=== PATIENT | female | born 1970 | race American Indian/Alaskan Native ===

== ENCOUNTER 2017-10-19 13:18 | Outpatient (CLI) | payer BC ==
--- NOTE | 2017-10-25 17:20 | Vascular Lab Report ---
LEFT UPPER EXTREMITY VENOUS DUPLEX: REASON FOR EXAM: Pain and swelling of the left upper extremity COMMENTS ON THE LEFT: All arm veins visualized are freely compressible without evidence of internal echogenicity. The subclavian and internal jugular veins are free of thrombus. Flow is spontaneous and phasic throughout. COMMENTS ON THE RIGHT: A limited study of the jugular and subclavian veins shows no evidence of thrombus. IMPRESSION: No evidence of acute or chronic deep venous thrombosis in the left upper extremity.
== END 2017-10-19 13:19 | disposition home or self-care (01) ==
LOC: VAS 13:18
PROVIDERS: ATTEND Internal Medicine Hematology
DX: M79.622 Pain in left upper arm (principal); M79.89 Other specified soft tissue disorders

== ENCOUNTER 2017-11-10 14:21 | Outpatient (CLI) | payer BC ==
--- NOTE | 2017-11-11 10:41 | Magnetic Resonance Report ---
MRI CERVICAL SPINE WITHOUT AND WITH CONTRAST: 11/10/17 16:00:00 CLINICAL: Pain swelling of the left upper extremity. TECHNIQUE: Sagittal T1,T2 and STIR and axial gradient T2* sequences plus sagittal and axial postcontrast T1 fat sat sequences on a 1.5 Елена magnet. 15.0 cc of Multihance was injected intravenously for the contrast portion of the exam and so was obtained prior to administration of contrast. FINDINGS:Normal vertebral body alignment. Mild degenerative disc disease with decreased height of the C5 and C6 vertebral bodies, anterior and posterior osteophytes and disc space narrowing at C5-6 and C6-7. The overall marrow signal is normal. The cerebellar tonsils are in normal position. The spinal cord is normal size with normal signal. C2-3: Intact. C3-4:Intact. C4-5: The disc is intact. Small anterior and posterior osteophytes. No neural foraminal stenosis. C5-6:A large left paracentral and left foraminal disc-osteophyte producing left lateral recess stenosis and mass effect on the cord. Moderate left neural foraminal stenosis. A right lateral osteophyte and moderate right neural foraminal stenosis. Posterior osteophytes produce mild effacement of the thecal sac and mild spinal canal stenosis with the AP diameter of canal measuring 9.4 mm. C6-7:A large left paracentral and left foraminal disc-osteophyte producing left lateral recess stenosis and mass effect on cord. Marked left neural foraminal narrowing. Moderate right neural foraminal narrowing due to osteophytes. Posterior osteophytes produce mild effacement of the sac and mild spinal canal stenosis with the AP diameter of canal measuring 8.6 mm. C7-T1:Intact. No soft tissue mass and no enhancing lesion. IMPRESSION: 1. No mass and no cord lesion. 2. Degenerative disc disease with large left paracentral and left foraminal osteophytes producing neural foraminal stenosis at C5-6 and C6-7. 3. Right neural foraminal stenosis produced by osteophytes at C5-6 and C6-7.
--- NOTE | 2017-11-11 10:43 | Magnetic Resonance Report ---
MRI THORACIC SPINE WITHOUT AND WITH CONTRAST: 11/10/17 16:00:00 CLINICAL: Left arm pain and swelling. TECHNIQUE: Sagittal and axial T1 and T2, and sagittal STIR sequences plus sagittal and axial T1 fat-sat postcontrast sequences on a 1.5 Елена magnet. 15.0 cc of Multihance was injected intravenously for the contrast portion of the exam and consent was obtained prior to the contrast administration. FINDINGS: Normal vertebral body height, alignment and disk spaces. The spinal cord is normal size with normal signal. No enhancing lesion of the cord. Normal marrow signal and normal disk signal. The conus medullaris is normal and terminates at L1-2. The disks are intact at all levels. No disk protrusions or bulges. No mass or enhancing lesion. IMPRESSION: Normal thoracic spine. No cord lesion and no mass.
== END 2017-11-10 14:22 | disposition home or self-care (01) ==
LOC: SPVIMAG 14:21 → MRI 14:22
PROVIDERS: ATTEND Internal Medicine Hematology
DX: M48.02 Spinal stenosis, cervical region (principal); M50.322 Other cervical disc degeneration at C5-C6 level; M25.78 Osteophyte, vertebrae; D64.9 Anemia, unspecified; Z86.718 Personal history of other venous thrombosis and embolism; Z87.39 Personal history of other diseases of the musculoskeletal system and connective tissue
CPT/HCPCS: 72156; 72157; A9577

== ENCOUNTER 2018-10-30 05:55 | Observation (INO) | payer BC ==
--- NOTE | 2018-10-23 10:45 | History and Physical Report ---
History of Present Illness Date of examination: 10/23/18 Date of admission: 10/30/18 Chief complaint: heavy periods History of present illness: Visit Type: Pre-Op CC: pre op. History of Present Illness: pt presents for PRe op visit: MATTHEW.....sirena Pt here for pre op for LAVH with BS due to menorrhagia and uterine fibroids. All risk/benefits/alternatives were d/w pt and questions were addressed and answered . Consents were signed and placed on the chart. Pt has h/o DVT and therefore was not started on any hormonal threapy. Given other options of ablation vs hysterectomy, she desires total removal of uterus. Consents signed and placed on the chart. Vital Signs: Patient Profile: 48 Years Old Female LMP: 09/29/2018 Height: 61 inches (154.94 cm) Weight: 185 pounds BMI: 34.95 BP sittin / 76 (left arm) Menstrual History: LMP (date): 09/29/2018 Date of Last Pap Smear: 04/20/2018 [OB-New Pt-Past Preg Hx-CCC] [employer] History Operations: positive-thyroid tumor removed Abnormal PAP: positive Uterine Anomaly: negative Infection History HIV Risk Eval: no Personal hx. of genital herpes: yes Partner hx. of genital herpes: no Hx of STD: HPV,HSV II Active Medications (reviewed today): INHALER () OMEPRAZOLE 40 MG ORAL CAPSULE DELAYED RELEASE (OMEPRAZOLE) one po q day IRON () B12 () D3 () FENOFIBRATE 54 MG ORAL TABLET (FENOFIBRATE) LIOTHYRONINE SODIUM 5 MCG ORAL TABLET (LIOTHYRONINE SODIUM) SYNTHROID 100 MCG ORAL TABLET (LEVOTHYROXINE SODIUM) () Current Allergies (reviewed today): ASA (Critical) Past Medical History: Asthma DVT dx'd 2014-s/p treatment. not currently on blood thinners Hypothyroidism Past Surgical History: Reviewed history from 06/27/2016 and no changes required: positive-thyroid tumor removed Family History Summary: Reviewed history Last on 04/06/2018 and no changes required:10/24/2018 Father (biol.) - Has Family History of Coronary Heart Disease - Entered On: 12/26/2013 Father (biol.) - Has Family History of Hypertension - Entered On: 12/26/2013 Father (biol.) - Has No Family History of Breast Cancer - Entered On: 12/26/2013 Father (biol.) - Has No Family History of Cervical Cancer - Entered On: Father (biol.) - Has No Family History of Colon Cancer - Entered On: 12/26/2013 Father (biol.) - Has No Family History of Ovarvian Cancer - Entered On: 12/26/2013 General Comments - FH: liver cancer Brother Social History: Reviewed history from 07/22/2014 and no changes required: Patient is single Smoking History: Patient has never smoked. no drugs/no etoh Risk Factors: Smoked Tobacco Use: Never smoker Smokeless Tobacco Use: Never Drug use: no HIV high-risk behavior: no Alcohol use: no Exercise: no Seatbelt use: 100 % PAP Smear History: Date of Last PAP Smear: 04/20/2018 [[facility] [Labs In-House] Physical Exam Appearance: well developed, well nourished, no acute distress Other Exams Lungs: no rales, rhonchi, or wheezes Heart: S1, S2, no murmur, rub, or gallop Abdomen: soft, non-tender, no masses, bowel sounds normal Extremities: normal alignment, no joint enlargement, crepitus, masses or tenderness; normal tone and strength Genitourinary Exam Comments: deferred until EUA Past History Past Medical History: thyroid disease, other (DVT) Past Surgical History: thyroid [employer] History: trichomonas. denies: abnormal PAP smear Social history: no significant social history, single Medications and Allergies Allergies Allergy/AdvReac Type Severity Reaction Status Date / Time aspirin Allergy Unknown Unverified 10/22/18 16:25 Home Medications Medication Instructions Recorded Confirmed Last Taken Type Albuterol Sulfate [Albuterol 2 puff IH Q4H PRN 10/22/18 10/22/18 Unknown History Sulfate Hfa] Budesonide/Formoterol Fumarate 1 puff IH DAILY 10/22/18 10/22/18 Unknown History [Symbicort 80-4.5 Mcg Inhaler] Fenofibrate 54 mg PO DAILY 10/22/18 10/22/18 Unknown History Ferrous Sulfate [Iron 325 MG] 325 mg PO QID 10/22/18 10/22/18 Unknown History Levothyroxine Sodium [Synthroid] 100 mcg PO DAILY 10/22/18 10/22/18 Unknown History Liothyronine Sodium [Cytomel] 5 mcg PO DAILY 10/22/18 10/22/18 Unknown History Omeprazole 40 mg PO DAILY 10/22/18 10/22/18 Unknown History Review of Systems All systems: negative - Physical Exam Breasts: Positive: deferred Cardiovascular: Normal S1, Normal S2 Lungs: Positive: Clear to auscultation, Normal air movement Abdomen: Positive: normal appearance, soft. Negative: distention, tenderness, guarding Genitourinary (Female): Positive: other (deferred until EUA previously normal) Extremities: Positive: normal. Negative: tenderness, edema Deep Tendon Reflex Grade: Normal +2 Results Result Diagrams: 10/23/18 11:55 10/23/18 11:55 All other labs normal. Assessment and Plan - Patient Problems (1) Perimenopausal menorrhagia Status: Acute (2) Fibroid uterus Status: Acute Qualifiers: Uterine leiomyoma location: intramural Qualified Code(s): D25.1 - Intramural leiomyoma of uterus Plan to address problem: -to OR for above stated procedure. -Consents signed and placed on the chart.
[2018-10-23 12:14] LABS: Basophils % (Auto) 0.4 % (0.0-1.8); Eosinophils # (Auto) 0.2 K/mm3 (0.0-0.4); Eosinophils % (Auto) 2.9 % (0.0-4.3); Hematocrit 34.5 % (30.3-42.9); Hemoglobin 11.6 gm/dl (10.1-14.3); Lymphocytes # (Auto) 2.7 K/mm3 (1.2-5.4); Lymphocytes % (Auto) 40.8 % (13.4-35.0); Mean Corpuscular HGB Conc 34 % (30-34); Mean Corpuscular Volume 89 fl (79-97); Monocytes # (Auto) 0.7 K/mm3 (0.0-0.8); Monocytes % (Auto) 10.1 % (0.0-7.3); Platelet Count 368 K/mm3 (140-440); Red Blood Count 3.87 M/mm3 (3.65-5.03); Red Cell Distribution Width 19.1 % (13.2-15.2)
--- NOTE | 2018-10-23 12:22 | Anesthesia Consultation ---
Anesthesia Consult and Med Hx Date of service: 10/23/18 - Airway Anesthetic Teeth Evaluation: Good ROM Head & Neck: Adequate Mental/Hyoid Distance: Adequate Mallampati Class: Class II Intubation Access Assessment: Probably Good - Pulmonary Exam CTA: Yes - Cardiac Exam Cardiac Exam: RRR - Pre-Operative Health Status ASA Pre-Surgery Classification: ASA3 Proposed Anesthetic Plan: General Nerve Block: Discussed TAP block - Pulmonary Hx Asthma: Yes (two inhalers; moderate asthma w/ multiple emergency visits, no intubations) Hx Respiratory Symptoms: No SOB: No COPD: No - Central Nervous System Hx Psychiatric Problems: No - Gastrointestinal Hx Gastroesophageal Reflux Disease: Yes (on tums) - Endocrine Hx Insulin Dependent Diabetes: No Hx Hyperthyroidism: Yes (s/p thyroidectomy ) - Hematic Hx Anemia: Yes - Other Systems Hx Alcohol Use: Yes (Occas) Hx Cancer: No - Additional Comments Anesthesia Medical History Comments: multimodal analgesia (gabapentin, celebrex, tylenol, TAP block); pepcid
[2018-10-23 12:32] LABS: BUN/Creatinine Ratio 19; Blood Urea Nitrogen 13 mg/dL (7-17); Calcium 8.6 mg/dL (8.4-10.2); Hemolysis Index 10
[2018-10-30] MEDS ORDERED: ANCEF/STERILE WATER 2 GM/20 ML 2 GM/20 ML SYRINGE IV NR (06:00)
[2018-10-30] MEDS ORDERED: NACL BACTERIOSTATIC INFILTRATI ONE (06:28)
[2018-10-30] MEDS ORDERED: LACTATED RINGERS 1,000 ML ONE ×3 (06:28→11:42)
[2018-10-30] MEDS: LACTATED RINGERS 1,000 ML IV SCH ×2 (06:50→21:56)
[2018-10-30] MEDS ORDERED: MARCAINE 0.5% INFILTRATI ONE ×2 (07:17→08:27)
[2018-10-30] MEDS ORDERED: NACL 0.9% 100 ML ONE (07:17)
[2018-10-30] MEDS ORDERED: Vasostrict ONE (07:17)
[2018-10-30] MEDS ORDERED: ZOFRAN ONE (07:20)
[2018-10-30] MEDS ORDERED: XYLOCAINE MPF 2% ONE (07:20)
[2018-10-30] MEDS ORDERED: DECADRON ONE (07:20)
[2018-10-30] MEDS ORDERED: ZEMURON IV ONE (07:20)
[2018-10-30] MEDS ORDERED: DILAUDID ONE ×2 (07:20→10:33)
[2018-10-30] MEDS ORDERED: DIPRIVAN 10 MG/ML IV ONE (07:21)
[2018-10-30] MEDS ORDERED: NEURONTIN ONE (07:26)
[2018-10-30] MEDS ORDERED: TYLENOL ONE (07:26)
--- NOTE | 2018-10-30 07:31 | Anesthesia Day of Surgery ---
Anesthesia Day of Surgery - Day of Surgery Patient Examined: Yes Patient H&P Reviewed: Yes Patient is NPO: Yes Cardiac Clearance: Yes (Med)
[2018-10-30] MEDS ORDERED: ZOFRAN IV PRN (08:00)
[2018-10-30] MEDS ORDERED: SUBLIMAZE IV PRN (08:00)
[2018-10-30] MEDS ORDERED: Vasostrict IM ONE (08:26)
[2018-10-30] MEDS ORDERED: NACL 0.9% IV ONE (08:27)
[2018-10-30] MEDS ORDERED: NACL 0.9% IR ONE (08:27)
--- NOTE | 2018-10-30 09:59 | Operative Report ---
Operative Report Operative Report: Date of procedure: 10/30/2018 Pre-operative diagnosis: Menorrhagia Uterine fibroids Post-operative diagnosis: Same Procedure name(s): Laparoscopic assisted vaginal hysterectomy Bilateral salpingectomy Surgeon: Zahra Archer MD Bore Miner Operator: Dr. Iliana Reyes Anesthesia: Gen. endotracheal anesthesia EBL: 300 mL Urine output: 400 mL of clear urine out at end of procedure Fluids: 800 mL Findings: Approximately 12 week size uterus. Grossly normal fallopian tubes and ovaries bilaterally. At least 2 uterine myomas identified. Indications: Patient with a long history of menorrhagia and monthly periods. Patient was noted to have uterine fibroids. Due to patient's other medical conditions she was not able to take hormonal therapy for the treatment of the menorrhagia. Patient elected for definitive therapy via removal of the uterus. All risks benefits and alternatives were discussed with the patient. All questions were addressed and answered. Consents were signed and placed on the chart. Procedure: Patient was taken to the operating room where she was placed under general endotracheal anesthesia. She was then prepped and draped in sterile fashion. It was at this point that the small H[place]le uterine manipulator was placed inside of the uterus after the uterus was sounded to approximately 12 cm. Guaman catheter was also placed at this time. Attention was then turned to the umbilicus in which a supraumbilical incision was made. Under direct visualization the 5 mm trocar was placed inside the peritoneum the peritoneum was then insufflated. As at this point that the laparoscopic portion of the procedure was performed. 2 lateral 5 mm ports were also placed under direct visualization. Using the tripolar instrument the upper pedicles were cauterized and transected to the including round ligament with excellent hemostasis noted bilaterally. Attention was then turned vaginally. A weighted speculum was placed into the vagina and the cervix was grasped with a single-tooth tenaculum 2. The cervix was then injected circumferentially with Pitressin. The cervix was then circumferentially incised with the scalpel and the bladder dissected off of the pubovesical cervical fascia anteriorly with a sponge stick and Metzenbaum scissors. The same procedure was performed posteriorly and the posterior cul-de-sac was entered into sharply without difficulty. At this point a Adrianne Clamp was placed over the uterosacral ligaments on either side. These were then transected and suture ligated with 0 Vicryl. Hemostasis was assured. The cardinal ligaments were then clamped on both sides transected and suture ligated in similar fashion. The uterine arteries were then serially clamped with Adrianne clamps transected and suture ligated on both sides. Excellent hemostasis was visualized. After it was clear that the uterus had been completely from all pedicles the uterus was removed vaginally intact with cervix intact. The vaginal cuff angles were closed with figure of 8 stitches of 0 Vicryl on both sides. The peritoneum was incorporated in the stitching of the vaginal cuff. A series of interrupted figure of 8 sutures using 0 Vicryl were used to close the entire vaginal cuff. Excellent hemostasis was noted. The vagina was then irrigated copiously. Attention was then turned laparoscopically at which time vaginal cuff was noted to be completely hemostatic. Again all pedicles were noted to be hemostatic. All instruments were then removed from the abdomen and the vagina. All gas was released from the abdomen. The abdominal incisions were closed using 4-0 Monocryl. All of the abdominal incisions were injected with Marcaine without epi. Patient tolerated the procedure well sponge lap and needle counts were all correct 3 the patient was taken to the recovery room awake and in stable condition.
[2018-10-30] MEDS: DILAUDID IV PRN ×2 (10:18→10:28)
[2018-10-30] MEDS ORDERED: MARCAINE-EPI 0.25%-1:200,000 INFILTRATI ONE (10:34)
[2018-10-30] MEDS ORDERED: XYLOCAINE 1% 20 mL ONE (10:34)
[2018-10-30] MEDS ORDERED: MORPHINE IV PRN (11:00)
[2018-10-30] MEDS ORDERED: PROVENTIL IH PRN (13:26)
--- NOTE | 2018-10-30 13:59 | Event Note ---
Date: 10/30/18 Provider called regarding getting orders for treatment for pt asthma. Provider and bedside with respiratory team who was giving the albuterol neb treatments as ordered. Pt in NAD at this time. Now stating she does have severe asthma which she did mention to provider at pre op appointment. Will con't neb treatments q4hrs. She state that she is feeling a little better with the treatments when asked how she was feeling.
[2018-10-30] MEDS: NORCO 5/325 PO PRN (14:55)
--- NOTE | 2018-10-30 15:02 | Post Anesthesia Evaluation ---
- Post Anesthesia Evaluation Patient Participated: Yes Airway Patent: Yes Stable Respiratory Function: Yes Nausea/Vomiting: No Temp > 96.8F: Yes Pain Manageable: Yes Adequeate Hydration: Yes Anesthesia Complications: No
[2018-10-30] MEDS: ANCEF/NS 1 GM/50 ML 1 GM/50 ML BAG IV SCH ×2 (16:24→23:08)
[2018-10-30] MEDS ORDERED: ROBINUL ONE (16:32)
[2018-10-30] MEDS: PROVENTIL IH SCH (21:05)
[2018-10-30] MEDS ORDERED: LOVENOX SUB-Q SCH (22:00)
[2018-10-31] MEDS: PROVENTIL IH SCH (01:30)
[2018-10-31] MEDS ORDERED: PROVENTIL IH PRN (04:57)
[2018-10-31 07:48] LABS: Hematocrit 27.1 % (30.3-42.9); Hemoglobin 8.9 gm/dl (10.1-14.3)
[2018-10-31] MEDS ORDERED: PULMICORT IH SCH (08:00)
[2018-10-31] MEDS ORDERED: ATROVENT IH SCH (08:00)
[2018-10-31] MEDS: NORCO 5/325 PO PRN (08:34)
--- NOTE | 2018-10-31 08:46 | Progress Note ---
Assessment and Plan - Patient Problems (1) Perimenopausal menorrhagia Current Visit: No Status: Acute (2) Fibroid uterus Current Visit: No Status: Acute Qualifiers: Uterine leiomyoma location: intramural Qualified Code(s): D25.1 - Intramural leiomyoma of uterus (3) S/P laparoscopic assisted vaginal hysterectomy (LAVH) Current Visit: Yes Status: Acute Plan to address problem: -routine post op care -d/c home this pm if tolearates breakfast and lunch (4) Status post bilateral salpingectomy Current Visit: Yes Status: Acute Plan to address problem: routine d/c home this pm if tolerates diet and asthma remains stable. (5) Asthma Current Visit: Yes Status: Acute Qualifiers: Asthma severity: severe Plan to address problem: -stable on nebs and home meds -d/c home today if remains AFVSS -O2 sat 100% on RA so will d/c con't pulse ox a this time Subjective - Subjective Date of service: 10/31/18 Principal diagnosis: POD #1 s/p LAVH with BS Interval history: Pt is doing well today. Pulse ox is 98-100% on RA while provider was at the bedised this am @ 0830. She has tolerated clear diet and was awaiting breakfast. States she feels better as it related to her asthma since she has been getting the scheduled treatments. Pain is well controlled. She c/o some dizziness with inital ambulation. I d/w the anemia and that she will need to con't iron tablets but that a xfusion is not needed at this time. Precautions were d/w pt and given. All questions were addressed and answered. Patient reports: dizzy ambulation (with first amulation but has resolved), ambulating normally, no nauseated Objective - Vital Signs Latest vital signs: Vital Signs Temp Pulse Pulse Pulse Resp Resp Resp 10/31/18 08:42 10/31/18 08:41 94 H 92 H 16 16 10/31/18 08:34 16 10/31/18 05:35 98.5 F 81 20 10/31/18 01:50 10/31/18 01:49 86 18 10/31/18 01:40 98.9 F 85 20 10/31/18 01:30 85 18 10/31/18 01:29 10/30/18 21:18 92 H 18 10/30/18 21:05 90 20 10/30/18 21:02 97.9 F 91 H 18 10/30/18 16:04 98.5 F 80 18 10/30/18 15:01 18 10/30/18 13:57 90 14 10/30/18 13:30 81 14 10/30/18 13:05 20 10/30/18 12:00 21 10/30/18 11:55 98.1 F 89 20 10/30/18 10:45 84 10 L 10/30/18 10:30 82 13 10/30/18 10:15 85 13 10/30/18 10:10 91 H 13 10/30/18 10:04 98.6 F 90 14 BP BP Pulse Ox 10/31/18 08:42 96 10/31/18 08:41 10/31/18 08:34 10/31/18 05:35 111/65 97 10/31/18 01:50 98 10/31/18 01:49 10/31/18 01:40 99/54 97 10/31/18 01:30 10/31/18 01:29 98 10/30/18 21:18 10/30/18 21:05 10/30/18 21:02 112/68 94 10/30/18 16:04 108/63 10/30/18 15:01 95 10/30/18 13:57 10/30/18 13:30 10/30/18 13:05 98 10/30/18 12:00 95 10/30/18 11:55 130/81 90 10/30/18 10:45 126/64 99 10/30/18 10:30 125/81 98 10/30/18 10:15 121/73 99 10/30/18 10:10 124/72 100 10/30/18 10:04 111/54 100 Intake and Output 10/30/18 10/31/18 10/31/18 22:59 06:59 14:59 Intake Total 1170 480 Output Total 350 600 Balance 820 -120 Intake: IV 1050 ANCEF/NS 1 GM/50 ML 1 gm 50 In 50 ml @ 100 mls/hr IV Q8H DEA Rx#:[id number] Lactated Ringers 1,000 ml 1000 @ 75 mls/hr IV DIRECT DEA Rx#:[id number] Oral 120 480 Output: Urine 350 600 Indwelling Catheter 350 600 Other: Total, Intake Amount 120 240 Total, Output Amount 350 600 Voiding Method Indwelling Catheter - Exam Cardiovascular: Present: Normal S1, Normal S2 Lungs: Present: Clear to auscultation, Normal air movement Abdomen: Present: normal appearance, soft. Absent: distention, tenderness, guarding Incision: Present: normal, dry, intact (open to air) - Labs Labs: Abnormal lab results 10/31/18 Range/Units 07:32 Hgb 8.9 L (10.1-14.3) gm/dl Hct 27.1 L (30.3-42.9) %
--- NOTE | 2018-10-31 08:47 | Discharge Summary ---
Providers - Providers Date of Admission: 10/30/18 10:00 Date of discharge: 10/31/18 Attending physician: REYES BURRIS Primary care physician: ADRIAN PEACOCK Hospitalization Reason for admission: other (LAVH W/ BS) Procedure: other (LAVH W/ BX) Procedure details: SEE OP NOTE Incision: normal, dry, intact Condition at discharge: Good Disposition: DC-01 TO HOME OR SELFCARE - Discharge Diagnoses (1) Perimenopausal menorrhagia Status: Acute (2) Fibroid uterus Status: Acute Qualifiers: Uterine leiomyoma location: intramural Qualified Code(s): D25.1 - Intramural leiomyoma of uterus (3) Asthma Status: Acute Qualifiers: Asthma severity: severe (4) S/P laparoscopic assisted vaginal hysterectomy (LAVH) Status: Acute (5) Status post bilateral salpingectomy Status: Acute (6) Anemia Status: Acute Qualifiers: Iron deficiency anemia type: chronic blood loss Plan - Discharge Medications Prescriptions: oxyCODONE /ACETAMINOPHEN [Percocet 5/325] 1 tab PO Q4HR #30 tab - Provider Discharge Summary Additional instructions: [] Smoking cessation referral if applicable(refer to patient education folder for contact #) [] Refer to [facility]'s [facility] Booklet Call your doctor immediately for: * Fever > 100.5 * Heavy vaginal bleeding ( >1 pad per hour) * Severe persistent headache * Shortness of breath * Reddened, hot, painful area to leg or breast * Drainage or odor from incision. * Keep incision clean and dry at all times and follow doctor's instructions regarding bathing/showering - Follow up plan Follow up: ADRIAN PEACOCK MD [Primary Care Provider] - 7 Days REYES BURRIS MD [Staff Physician] - 7 Days
[2018-10-31 12:59] VITALS: BP 120/61
== END 2018-10-31 15:30 | disposition home or self-care (01) ==
LOC: OR 05:55 → OB 10:00
PROVIDERS: ADMIT Obstetrics & Gynecology; ATTEND Obstetrics & Gynecology
DX: D25.9 Leiomyoma of uterus, unspecified (principal); N92.4 Excessive bleeding in the premenopausal period; D64.9 Anemia, unspecified; E03.9 Hypothyroidism, unspecified; J45.909 Unspecified asthma, uncomplicated; Z90.710 Acquired absence of both cervix and uterus; Z90.722 Acquired absence of ovaries, bilateral
CPT/HCPCS: 36415; 58554; 80048; 81025; 85014; 85018; 85025; 86850; 86900; 86901; 88302; 88307; 94640; 94760; 96365; 96366; 96372; 96375; G0378; J0690; J1100; J1170; J1650; J2405; J2704; J7120